=== PATIENT | male | born 1975 | race Two or more races ===

== ENCOUNTER 2017-12-15 22:05 | Emergency (ER) | payer OTHER ==
[~2017-12-15] VITALS: Ht 175.3 cm; Wt 97.5 kg
[~2017-12-15 22:05] MED LIST: METOPROLOL ER-1 EACH
[2017-12-15] MEDS ORDERED: OMEPRAZOLE20 MG (22:15)
[2017-12-15] MEDS ORDERED: ASA81 MG (22:15)
[2017-12-16] MEDS ORDERED: KETO10TA2 PO (01:59)
[2017-12-16] MEDS ORDERED: ORPHENADRINE C100 MG PO (01:59)
== END 2017-12-16 05:03 | disposition home or self-care (01) ==
LOC: ER 22:05
DX: R42 Dizziness and giddiness (principal); M62.838 Other muscle spasm

== ENCOUNTER 2018-01-05 15:30 | Emergency (ER) | payer OTHER ==
[~2018-01-05] VITALS: Ht 175.3 cm; Wt 108.0 kg
[~2018-01-05 15:30] MED LIST changes: +ASA81 MG; +KETO10TA2 PO; +OMEPRAZOLE20 MG; +ORPHENADRINE C100 MG PO
[2018-01-05] MEDS ORDERED: ASPIR 8181 MG (15:45)
== END 2018-01-05 18:25 | disposition home or self-care (01) ==
LOC: ER 15:30
DX: M94.0 Chondrocostal junction syndrome [Tietze] (principal); R07.89 Other chest pain; R00.0 Tachycardia, unspecified

== ENCOUNTER 2018-10-19 13:08 | Emergency (ER) | payer OTHER ==
[~2018-10-19] VITALS: Ht 175.3 cm; Wt 104.3 kg
[~2018-10-19 13:08] MED LIST changes: +ASPIR 8181 MG
[2018-10-19] MEDS ORDERED: LOSARTAN POTASS25 MG (13:47)
[2018-10-19] MEDS ORDERED: CLOTRIMAZOLE-BE15 G1 TOP (16:08)
== END 2018-10-19 16:36 | disposition home or self-care (01) ==
LOC: ER 13:08
DX: B35.3 Tinea pedis (principal)

== ENCOUNTER 2022-01-18 18:56 | Emergency (ER) | payer OTHER ==
[~2022-01-18] VITALS: Ht 177.8 cm; Wt 111.1 kg
[~2022-01-18 18:56] MED LIST changes: +CLOTRIMAZOLE-BE15 G1 TOP; +LOSARTAN POTASS25 MG
== END 2022-01-19 02:11 | disposition home or self-care (01) ==
LOC: ER 18:56
DX: R10.31 Right lower quadrant pain (principal); Z20.822 Contact with and (suspected) exposure to COVID-19

== ENCOUNTER 2024-08-19 07:43 | Emergency (ER) | payer OTHER ==
[~2024-08-19] VITALS: Ht 175.3 cm; Wt 108.9 kg
[2024-08-19 08:16] VITALS: BP 112/78; O2SAT 98
[2024-08-19] MEDS ORDERED: BUSPIRONE HCL5 MG (08:18)
[2024-08-19] MEDS ORDERED: BARIUM SULFATE 450 ML ORAL.SUSP PO ONE (08:35)
[2024-08-19 09:07] LABS: BASO % 0.5 % (0.1-1.2); EOS # 0.21 (0.04-0.54); EOS % 2.8 % (0.7-7.0); HEMATOCRIT 45.9 % (40.1-51.0); HEMOGLOBIN 15.4 g/dL (13.7-17.5); LYMPH # 1.59 (1.18-3.74); LYMPH % 21.1 % (19.3-53.1); MEAN CORPUSCULAR HEMOGLOBIN 28.2 pg (25.6-32.2); MONO # 0.81 (0.24-0.82); MONO % 10.8 % (4.7-12.5); NEUT # 4.84 (1.56-6.13); NEUT % 64.4 % (34.0-71.1); PLATELET COUNT 277 K/uL (163-369); RED BLOOD COUNT 5.46 M/uL (4.63-6.08); RED CELL DISTRIBUTION WIDTH 12.5 % (11.6-14.4)
[2024-08-19 09:23] LABS: PH,URINE 6.5 (5.0-8.0); URINE APPEARANCE Clear; URINE BILIRRUBIN Negative (NEGATIVE); URINE BLOOD Negative; URINE COLOR Yellow; URINE GLUCOSE Negative (NEGATIVE); URINE KETONE Trace (NEGATIVE); URINE LEUKOCYTE Trace; URINE NITRATE Negative; URINE PROTEIN Negative (NEGATIVE)
[2024-08-19 09:24] LABS: URINE BACTERIA 4.8 uL (0.0-1933); URINE WBC 2.2 uL (0.0-23.2)
[2024-08-19 09:34] LABS: CALCIUM 9.3 mg/dL (8.5-10.1); CREATININE SERUM 0.91 mg/dL (0.70-1.30); GFR 88.92; POTASSIUM 3.7 mEq/L (3.5-5.1)
[2024-08-19 09:39] LABS: URINE CAST 0.29 uL (0.0-1.40); URINE EPITHELIAL CELLS 0.6 uL (0.0-38.8); URINE RBC 1.9 uL (0.0-20.8)
== END 2024-08-19 12:39 | disposition home or self-care (01) ==
LOC: ER 07:43
PROVIDERS: Emergency Medicine
DX: R10.9 Unspecified abdominal pain (principal); I10 Essential (primary) hypertension; K57.32 Diverticulitis of large intestine without perforation or abscess without bleeding
CPT/HCPCS: 36415; 74177; Q9965